=== PATIENT | female | born 1935 | race Caucasian/White ===

== ENCOUNTER 2018-02-10 17:08 | Emergency (ER) | payer OTHER ==
[2018-02-10] MEDS ORDERED: SODIUM CHLORIDE 0.9% 500 ML IV ONE (17:35)
[2018-02-10] MEDS ORDERED: SODIUM CHLORIDE 0.9% 1,000 ML IV ONE (17:35)
[2018-02-10] MEDS ORDERED: ONDANSETRON 4 MG/2 ML VIAL IVP STA (17:35)
--- NOTE | 2018-02-10 17:37 | ED Physician Documentation ---
History of Present Illness - Stated complaint Stated Complaint: NAUSEA/VOMITING/CONFUSION - Chief complaint Chief Complaint: Abd Pain - History obtained from History obtained from: Patient, Family - History of Present Illness Timing: Today Pain level max: 8 Pain level now: 8 Improved by: nothing Worsened by: nothing - Additonal information Additional information: Patient is an 82-year-old female who started vomiting yesterday and has had continued vomiting today. She is visiting from [place]. She also developed a headache this morning that is been constant all day, described as "splitting" . Does not normally get headaches. No fevers. No history of abdominal surgeries. States is unable to keep anything down today. She is a diabetic. Family also states she has been more confused today. They state she has not been as active as normal as well. She denies any abdominal pain. No diarrhea. Review of Systems Ten Systems: 10 systems reviewed and negative Constitutional: denies: Fever, Chills Nose: denies: Rhinorrhea / runny nose, Congestion Throat: denies: Sore throat Respiratory: denies: Cough GI: reports: Bloody / black stool. denies: Hematemesis : reports: Frequency, Hesitancy Skin: denies: Rash Musculoskeletal: denies: Neck pain, Back pain Neurologic: denies: Headache PD PAST MEDICAL HISTORY - Past Medical History Cardiovascular: Hypertension, High cholesterol Endocrine/Autoimmune: Type 2 diabetes - Present Medications Home Medications: Ambulatory Orders Medication Instructions Recorded Confirmed Cephalexin [Keflex] 500 mg PO Q6H #20 capsule 02/10/18 Glipizide [Glucotrol Xl] mg PO 02/10/18 Lisinopril [Prinivil] mg PO 02/10/18 Ondansetron Odt [Zofran] 4 mg TL Q6H PRN #10 tablet 02/10/18 Simvastatin mg PO 02/10/18 metFORMIN [Glucophage] 02/10/18 - Allergies Allergies/Adverse Reactions: Allergies Allergy/AdvReac Type Severity Reaction Status Date / Time No Known Drug Allergies Allergy Verified 02/10/18 17:17 - Living Situation Living Situation: reports: With family Living Arrangement: reports: At home - Social History Does the pt smoke?: No Does the pt drink ETOH?: No Does the pt have substance abuse?: No - Family History Family history: reports: Non contributory PD ED PE NORMAL - Vitals Vital signs reviewed: Yes - General General: Alert and oriented X 3, No acute distress, Well developed/nourished - HEENT HEENT: PERRL, Pharynx benign, Other (Mildly dry lips and tongue) - Neck Neck: Supple, no meningeal sign - Cardiac Cardiac: RRR, Strong equal pulses - Respiratory Respiratory: No respiratory distress, Clear bilaterally - Abdomen Abdomen: Normal bowel sounds, Soft, Non tender, Non distended - Back Back: No CVA TTP, No spinal TTP - Derm Derm: Warm and dry, No rash - Extremities Extremities: No edema - Neuro Neuro: Alert and oriented X 3 - Psych Psych: Normal mood, Normal affect Results - Vitals Vitals: Oxygen O2 Source Room air - Labs Labs: Laboratory Tests 02/10/18 02/10/18 02/10/18 17:48 17:48 17:50 WBC 8.5 RBC 4.50 Hgb 13.2 Hct 39.7 MCV 88.3 MCH 29.3 MCHC 33.2 RDW 14.4 Plt Count 200 MPV 7.9 Neut # (Auto) 6.7 H Lymph # (Auto) 1.2 L [place]ole # (Auto) 0.5 Eos # (Auto) 0.0 Baso # (Auto) 0.1 Absolute Nucleated RBC 0.00 Nucleated RBC % 0.0 Sodium 139 Potassium 3.3 L Chloride 103 Carbon Dioxide 27 Anion Gap 9.0 BUN 9 Creatinine 0.6 Estimated GFR (MDRD) 96 Glucose 177 H Calcium 9.1 Total Bilirubin 0.9 AST 23 ALT 23 Alkaline Phosphatase 34 L Total Protein 7.0 Albumin 4.1 Globulin 2.9 Albumin/Globulin Ratio 1.4 Lipase 20 L Urine Color YELLOW Urine Clarity CLEAR Urine pH 7.0 Ur Specific [place] 1.025 Urine Protein 100 H Urine Glucose (UA) NEGATIVE Urine Ketones 15 H Urine Occult Blood NEGATIVE Urine Nitrite NEGATIVE Urine Bilirubin NEGATIVE Urine Urobilinogen 1 (NORMAL) Ur Leukocyte Esterase NEGATIVE Urine RBC 0-5 Urine WBC 0-3 Ur Squamous Epith Cells FEW Squamous Urine Bacteria None Seen Urine Mucus Moderate Strands Ur Microscopic Review INDICATED Urine Culture Comments NOT INDICATED - Rads (name of study) Head CT Radiology: Prelim report reviewed, EMP read contemporaneously, See rad report ( No acute intracranial abnormalities) Abdomen pelvis CT Radiology: Prelim report reviewed, EMP read contemporaneously, See rad report ( Trace pelvic free fluid. Mild hazy mesenteric attenuation adjacent to several small bowel loops could indicate mild enteritis. No bowel obstruction, perforation or abscess. Diverticulosis without evidence of acute diverticulitis.) PD MEDICAL DECISION MAKING - ED course Complexity details: reviewed results, re-evaluated patient, considered differential, d/w patient, d/w family ED course: Patient is a barbara 82-year-old female who is visiting from [place], feels better after IV fluids and her mental status seems to have returned to her normal levels. Upon review of her CT scan, it does appear that there may be some very slight stranding around the kidneys and bladder. Will treat her for UTI as well. No acute findings on head CT. Will continue supportive care and follow-up with her doctor. Patient and family counseled regarding signs and symptoms for which I believe and urgent re-evaluation would be necessary. Patient with good understanding of and agreement to plan and is comfortable going home at this time This document was made in part using voice recognition software. While efforts are made to proofread this document, sound alike and grammatical errors may occur. - Sepsis Event Vital Signs: Oxygen O2 Source Room air Departure - Departure Disposition: 01 Home, Self Care Clinical Impression: Dehydration UTI (urinary tract infection) Qualifiers: Urinary tract infection type: acute cystitis Hematuria presence: without hematuria Qualified Code(s): N30.00 - Acute cystitis without hematuria Vomiting Qualifiers: Vomiting type: unspecified Vomiting Intractability: non-intractable Nausea presence: with nausea Qualified Code(s): R11.2 - Nausea with vomiting, unspecified Condition: Good Instructions: ED Dehydration, ED Nausea Vomiting Follow-Up: Provider,Other [Primary Care Provider] - Within 1 week Prescriptions: Cephalexin [Keflex] 500 mg PO Q6H #20 capsule Ondansetron Odt [Zofran] 4 mg TL Q6H PRN #10 tablet PRN Reason: Nausea / Vomiting Comments: Drink plenty of fluids. Return if you worsen. This should improve over the next 24 hours. Discharge Date/Time: 02/10/18 21:05
[2018-02-10 17:53] LABS: BASOPHILS # (AUTO) 0.1 10^3/uL (0.0-0.1); BASOPHILS % (AUTO) 0.6 %; EOSINOPHILS % (AUTO) 0.2 %; HGB - HEMOGLOBIN 13.2 g/dL (12.0-16.0); LYMPHOCYTES # (AUTO) 1.2 10^3/uL (1.5-3.5); LYMPHOCYTES % (AUTO) 13.8 %; MEAN CORPUSCULAR HEMOGLOBIN 29.3 pg (27.0-31.0); MEAN CORPUSCULAR HGB CONC 33.2 g/dL (32.0-36.0); MEAN CORPUSCULAR VOLUME 88.3 fL (81.0-99.0); MEAN PLATELET VOLUME 7.9 fL (7.9-10.8); MONOCYTES # (AUTO) 0.5 10^3/uL (0.0-1.0); MONOCYTES % (AUTO) 6.3 %; NEUTROPHILS # (AUTO) 6.7 10^3/uL (1.5-6.6); NEUTROPHILS % (AUTO) 79.1 %; PLT - PLATELET COUNT 200 10^3/uL (130-450); RED CELL DISTRIBUTION WIDTH 14.4 % (12.0-15.0); WHITE BLOOD COUNT 8.5 x10^3/uL (4.8-10.8)
[2018-02-10 17:59] LABS: BILIRUBIN,URINE NEGATIVE (NEGATIVE); GLUCOSE, URINE (UA) NEGATIVE (NEGATIVE); KETONES,URINE (UA) 15 mg/dL (NEGATIVE); LEUKOCYTE ESTERASE, URINE NEGATIVE (NEGATIVE); NITRITE,URINE NEGATIVE (NEGATIVE); OCCULT BLOOD,URINE NEGATIVE (NEGATIVE); PROTEIN,URINE 100 mg/dL (NEGATIVE); UROBILINOGEN,URINE 1 (NORMAL) E.U./dL (NORMAL)
[2018-02-10 18:06] LABS: CLARITY,URINE CLEAR (CLEAR)
[2018-02-10 18:09] LABS: ALBUMIN 4.1 g/dL (3.2-5.5); ALBUMIN/GLOBULIN RATIO 1.4 (1.0-2.2); BILIRUBIN,TOTAL 0.9 mg/dL (0.2-1.0); CALCIUM 9.1 mg/dL (8.5-10.3); CREATININE 0.6 mg/dL (0.4-1.0)
[2018-02-10 18:22] LABS: BACTERIA,URINE None Seen /HPF (None Seen); MUCUS,URINE Moderate Strands; RBC,URINE 0-5 /HPF (0-5); SQUAMOUS EPITHELIAL CELL,UR FEW Squamous (<= Few)
[2018-02-10] MEDS ORDERED: IOPAMIDOL-300 100 ML VIAL ONE (18:47)
[2018-02-10] MEDS ORDERED: IOPAMIDOL-300 100 ML VIAL IVP ONE (19:17)
--- NOTE | 2018-02-10 19:43 | CT Report ---
Procedure Date: 02/10/2018 Accession Number: [id number] / [id number] Procedure: CT - Head W/O CPT Code: FULL RESULT: EXAM: CT HEAD EXAM DATE: 02/10/2018 07:15 PM. CLINICAL HISTORY: Headache, new onset. COMPARISON: None. TECHNIQUE: Multiaxial CT images were obtained from the foramen magnum to the vertex. Reformats: Coronal. IV contrast: None. In accordance with CT protocol optimization, one or more of the following dose reduction techniques were utilized for this exam: automated exposure control, adjustment of mA and/or KV based on patient size, or use of iterative reconstructive technique. FINDINGS: Parenchyma: No intraparenchymal hemorrhage. No evidence of mass, midline shift, or CT findings of acute infarction. Periventricular white matter hypodensity likely represents small vessel ischemic disease. Extraaxial Spaces: Normal for age. No subdural or epidural collections identified. Ventricles: Normal in size and position. Sinuses and Orbits: Imaged paranasal sinuses, orbits, and mastoids show no significant abnormality. Bones: No evidence of fracture or calvarial defect. Other: None. IMPRESSION: No acute intracranial CT abnormality. [facility]
--- NOTE | 2018-02-10 19:55 | CT Report ---
Procedure Date: 02/10/2018 Accession Number: [id number] / [id number] Procedure: CT - Abdomen/Pelvis W/ CPT Code: FULL RESULT: EXAM: CT ABDOMEN AND PELVIS EXAM DATE: 02/10/2018 07:10 PM. CLINICAL HISTORY: Vomiting, abd distention. COMPARISONS: None. TECHNIQUE: Routine helical CT imaging was performed through the abdomen and pelvis. IV contrast: ISOVUE 300 100mL. Enteric contrast: No. Reconstructions: Coronal and sagittal. In accordance with CT protocol optimization, one or more of the following dose reduction techniques were utilized for this exam: automated exposure control, adjustment of mA and/or KV based on patient size, or use of iterative reconstructive technique. FINDINGS: Mild motion artifact. Lung Bases: Unremarkable. Liver: Small wedge-shaped area of increased attenuation in the hepatic dome measuring 9 mm may be perfusional. Otherwise unremarkable. Gallbladder/Bile Ducts: Unremarkable. Spleen: Normal. Pancreas: Mildly atrophic. Adrenal Glands: Normal. Kidneys: 2.8 cm right renal cyst. No hydronephrosis. Peritoneal Cavity/Bowel: Trace pelvic free fluid. No abscess. There is mild hazy attenuation within the mesentery adjacent to jejunum in the left abdomen. Small hiatal hernia. No bowel obstruction. No free air or lymphadenopathy. Descending and sigmoid colon diverticula. No evidence of acute diverticulitis. The appendix is well visualized and normal. Pelvic Organs: Bladder unremarkable. Uterus is absent. Vasculature: Mild atherosclerosis. No aneurysm. Bones: No significant abnormality. Other: None. IMPRESSION: 1. Trace pelvic free fluid. Mild hazy mesenteric attenuation adjacent to several small bowel loops could indicate mild enteritis. No bowel obstruction, perforation or abscess. 2. Diverticulosis without evidence of acute diverticulitis. [facility]
[2018-02-10] MEDS ORDERED: cefTRIAXone 1 GM VIAL IVP STA (20:15)
[2018-02-10 21:04] VITALS: BP 160/70
== END 2018-02-10 21:05 | disposition home or self-care (01) ==
LOC: ED 17:08
DX: E86.0 Dehydration (principal); N30.00 Acute cystitis without hematuria; R11.2 Nausea with vomiting, unspecified; E11.9 Type 2 diabetes mellitus without complications; Z79.84 Long term (current) use of oral hypoglycemic drugs
CPT/HCPCS: 36415; 70450; 74177; 80053; 81001; 83690; 85025; 96361; 96374; 96375; 99283; 99284; Q9967; 81003; 87086